=== PATIENT | male | born 1955 | race Caucasian/White ===

== ENCOUNTER 2018-03-03 11:34 | Inpatient (IN) | payer MEDICAID ==
[2018-03-03] MEDS ORDERED: Acetaminophen 325 MG Tab PO PRN (11:59)
[2018-03-03] MEDS ORDERED: Lactated Ringers 1,000 ML IV SCH (12:00)
[2018-03-03] MEDS ORDERED: LORazepam 1 MG Tab PO PRN (12:53)
[2018-03-03 12:57] LABS: CHLORIDE,CL 86 mmol/L (98-107)
--- NOTE | 2018-03-03 13:00 | PCM.HP ---
H&P History of Present Illness - General Date of Service: 03/03/18 Admit Problem/Dx: Admission Diagnosis/Problem Admission Diagnosis/Problem Aspiration pneumonia Source of Information: Other ([facility] staff) History Limitations: Reports: Language Barrier (patient is nonverbal) - History of Present Illness Initial Comments - Free Text/Narative: Mr. Chew is a 62 yo non-verbal male currently on treatment for aspiration pneumonia who presented to clinic for evaluation of ongoing fever with Tmax of 104 this am. He had been seen earlier in the week and diagnosed with aspiration pneumonia. He was started on augmentin 2 nights ago but has continued to spike high fevers. His cough also seems deeper per [facility] staff and he has had increased nasal congestion. He has not had any difficulty with breathing. His appetite is poor. He has a history of abdominal distension treated with temporary clear liquid diet. Given increased distension starting yesterday, he has been on a clear liquid diet. He is voiding ok. He is not passing gas but did have a large bowel movement this morning. He continues to be walking unsteadily and to be more sleepy than usual. He has not had any seizures. - Related Data Allergies/Adverse Reactions: Allergies Allergy/AdvReac Type Severity Reaction Status Date / Time No Known Allergies Allergy Verified 02/15/14 00:09 Home Medications: Home Meds Ammonium Lactate [Amlactin 12% Lotion] 1 applic TOP BID 02/15/14 [History] Betamethasone/Propylene Glyc [Betamethasone DP Aug 0.05%] 1 applic TOP BID PRN 02/15/14 [History] Divalproex Sodium [Depakote] 500 mg PO TID 02/15/14 [History] Furosemide [Lasix] 20 mg PO DAILY 02/15/14 [History] Loratadine [Claritin] 10 mg PO BEDTIME 02/15/14 [History] Multivitamin [Tab A Ian] 1 each PO DAILY 02/15/14 [History] QUEtiapine [SEROquel] 100 mg PO TID 02/15/14 [History] QUEtiapine [SEROquel] 400 mg PO BEDTIME 02/15/14 [History] Simethicone [Gas-X Ultra Strength] 125 mg PO QID 02/15/14 [History] Amoxicillin/Clavulanate K [Augmentin 875-125 MG] 1 tab PO BID 03/03/18 [History] Docusate Sodium [DOK] 200 mg PO BEDTIME 03/03/18 [History] LORazepam [Ativan] 1 mg SL ASDIRECTED PRN 03/03/18 [History] clonazePAM [Clonazepam] 0.5 mg PO BEDTIME 03/03/18 [History] Past Medical History HEENT History: Reports: Allergic Rhinitis Cardiovascular History: Reports: Heart Failure, High Cholesterol Respiratory History: Reports: None Gastrointestinal History: Reports: Chronic Constipation Genitourinary History: Reports: None Musculoskeletal History: Reports: None Neurological History: Reports: Seizure Psychiatric History: Reports: Autism, Depression Endocrine/Metabolic History: Reports: None Hematologic History: Reports: None Immunologic History: Reports: None Oncologic (Cancer) History: Reports: None Dermatologic History: Reports: Eczema - Infectious Disease History Infectious Disease History: Reports: None Social & Family History - Family History Neurological: Reports: CVA Endocrine/Metabolic: Reports: Diabetes, Type I - Tobacco Use Smoking Status *Q: Never Smoker - Alcohol Use Alcohol Use History: No Days Per Week of Alcohol Use: 0 Alcohol Use in Last Twelve Months: No - Recreational Drug Use Recreational Drug Use: No - Living Situation & Occupation Living situation: Reports: Single, Extended Care Facility Occupation: Disabled H&P Review of Systems - Review of Systems: Review Of Systems: Unable To Obtain (patient is nonverbal - staff offer no other complaints than as documented in HPI) Exam - Exam Exam: See Below - Exam General: Alert, Cooperative HEENT: Conjunctiva Clear, Mucosa Moist & [place] Neck: Supple, Trachea Midline. No: Lymphadenopathy, Thyromegaly Lungs: Normal Respiratory Effort, Crackles (right mid-lung field; lungs otherwise CTAB) Cardiovascular: Regular Rate, Regular Rhythm, Normal S1, Normal S2 GI/Abdominal Exam: Normal Bowel Sounds, Soft, Non-Tender, No Organomegaly, No Distention, No Mass Extremities: Normal Inspection, Non-Tender, No Pedal Edema Peripheral Pulses: 2+: Radial (L), Radial (R) Skin: Warm, Dry, Intact - Patient Data Lab Results Last 24 hrs: Laboratory Results - last 24 hr 03/03/18 Range/Units 12:05 WBC 8.0 (4.0-10.0) x10^3/uL RBC 3.68 L (4.5-6.0) x10^6/uL Hgb 12.0 L D (14.0-18.0) g/dL Hct 34.2 L (40.0-52.0) % MCV 92.9 (78.0-93.0) fL MCH 32.6 H (26.0-32.0) pg MCHC 35.1 (32.0-36.0) g/dL RDW Coeff of Sera 13.2 (10.0-15.0) % Plt Count 102 L (130-400) x10^3/uL Neut % (Auto) 62.6 (50.0-80.0) % Lymph % (Auto) 9.1 L (25.0-50.0) % [place] % (Auto) 28.2 H (2.0-11.0) % Eos % (Auto) 0.0 (0.0-4.0) % Baso % (Auto) 0.1 L (0.2-1.2) % Result Diagrams: 03/03/18 12:05 03/03/18 12:05 *Q Meaningful Use (ADM) - VTE *Q VTE Anticoagulation Contraindications: Med/TX Not Indicated/Need - Problem List (1) Hyponatremia SNOMED Code(s): 90311175 ICD Code: E87.1 - HYPO-OSMOLALITY AND HYPONATREMIA Status: Acute Current Visit: Yes Problem Details: - Had presumed his fatigue and difficulty walking was secondary to infection but now more likely related to the hyponatremia. - Has chronic hyponatremia, likely medication related. Acute on chronic likely secondary to poor PO intake this week. - He has not had any seizures related to this, which is good. - Will replete slowly with goal of maximum change in sodium to be 8-12 mmol/L in 24 hours. - Start with NaCl 0.9% at 125 cc/hr. - Recheck sodium this afternoon at 4 pm and adjust rate depending on those results. (2) Aspiration pneumonia SNOMED Code(s): 186722599 ICD Code: J69.0 - PNEUMONITIS DUE TO INHALATION OF FOOD AND VOMIT Status: Acute Current Visit: Yes Problem Details: - Ongoing fevers raise concern for failure of antibiotics. However, his labs actually are looking better than earlier this week. - Therefore, likely just needs more time to get the antibiotics in his system. - Given improvement in labs, would just continue the augmentin for now. - If he has another fever more than 48 hours after starting the antibiotics ( i.e. after 8 pm tonight), then would broaden to zosyn. - Consolidation is mass-like so radiology is recommending a CT with contrast. Although this is reasonable, it is also not urgent and can be done in the outpatient setting. If he does have ongoing fevers, then it can be reconsidered for the inpatient setting. Qualifiers: Aspiration pneumonia type: due to regurgitated food Laterality: right Lung location: middle lobe of lung Qualified Code(s): J69.0 - Pneumonitis due to inhalation of food and vomit (3) Thrombocytopenia SNOMED Code(s): 797015527 ICD Code: D69.6 - THROMBOCYTOPENIA, UNSPECIFIED Status: Acute Current Visit: Yes Problem Details: - Platelets have been low this week, likely related to acute illness. Consider depakote but this has never been an issue for him before. - Will monitor daily. (4) CHF (congestive heart failure) SNOMED Code(s): 33730923 ICD Code: I50.9 - HEART FAILURE, UNSPECIFIED Status: Chronic Current Visit: Yes Problem Details: - No evidence of CHF exacerbation. - Concern for possible fluid overload with correction of his hyponatremia. Therefore, even though the lasix will make him lose sodium, he likely needs to continue this to avoid any issues with CHF. - If difficulty correcting the sodium with fluids, will plan to hold lasix. Qualifiers: Heart failure type: diastolic Heart failure chronicity: chronic Qualified Code(s): I50.32 - Chronic diastolic (congestive) heart failure (5) Allergic rhinitis SNOMED Code(s): 97156999 ICD Code: J30.9 - ALLERGIC RHINITIS, UNSPECIFIED Status: Chronic Current Visit: Yes Problem Details: - Continue claritin. Qualifiers: Allergic rhinitis trigger: pollen Allergic rhinitis seasonality: seasonal Qualified Code(s): J30.1 - Allergic rhinitis due to pollen (6) Autism SNOMED Code(s): 057351623 ICD Code: F84.0 - AUTISTIC DISORDER Status: Chronic Current Visit: Yes Problem Details: - Patient behaviors have been outlined by [facility] staff. - Discussed with family that he requires 24/7 staffing and we are not able to accommodate that with our staff here in [place]. This is because he is a fall risk if he tries to get up on his own. - They voice understanding and will plan to have a family member staying with him 20/06 over the weekend. - Continue quetiapine. 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 - Consider PPI for reflux but this will more likely increase the risk of pneumonia than lower it so that would not be recommended at this time. (8) Epilepsy SNOMED Code(s): 63368693 ICD Code: G40.909 - EPILEPSY, UNSP, NOT INTRACTABLE, WITHOUT STATUS EPILEPTICUS Status: Chronic Current Visit: Yes Problem Details: - No seizure since December. - Continue home medications. - He will need to be on seizure precautions, especially as his sodium is corrected. This will be done very slowly to mitigate the risk of seizures. Qualifiers: Epilepsy type: unspecified Intractability: not intractable Status epilepticus: without status epilepticus Qualified Code(s): G40.909 - Epilepsy , unspecified, not intractable, without status epilepticus (9) Constipation SNOMED Code(s): 20066813 ICD Code: K59.00 - CONSTIPATION, UNSPECIFIED Status: Chronic Current Visit: Yes Problem Details: - Currently well controlled. - He does have abdominal distension today so will have him be NPO apart from sips to take his pills. - If distension improves tomorrow, can restart with clear liquid diet and then advance as tolerated. Qualifiers: Constipation type: unspecified constipation type Qualified Code(s): K59.00 - Constipation, unspecified Problem List Initiated/Reviewed/Updated: Yes Orders Last 24hrs: Active Orders 24 hr Category Date Time Status Patient Status [ADT] Routine ADT 03/03/18 11:38 Active Notify Provider Vital Signs [RC] ASDIRECTED Care 03/03/18 11:59 Active Oxygen Therapy [RC] .PRN Care 03/03/18 11:59 Active Up With Assistance [RC] ASDIRECTED Care 03/03/18 11:59 Active VTE/DVT Education [RC] .PRN Care 03/03/18 11:59 Active Vital Signs [RC] 06,10,14,18,22,02 Care 03/03/18 11:59 Active Nothing per Oral Now Diet [DIET] Diet 03/03/18 Lunch Active Chest 2V [CR] Routine Exams 03/03/18 11:52 Taken BASIC METABOLIC PANEL,BMP [CHEM] Stat Lab 03/03/18 12:05 Received C-REACTIVE PROTEIN [CHEM] Routine Lab 03/03/18 12:05 Received CULTURE BLOOD [BC] Stat Lab 03/03/18 12:05 Received CULTURE BLOOD [BC] Stat Lab 03/03/18 12:07 Received CULTURE MRSA SURVEY [RM] Routine Lab 03/03/18 12:10 Ordered LACTIC ACID [CHEM] Stat Lab 03/03/18 12:05 Received Acetaminophen [Tylenol] Med 03/03/18 11:59 Active 650 mg PO Q4H PRN Ammonium Lactate [Amlactin 12% Lotion] Med 03/03/18 20:00 Ordered 1 applic TOP BID Divalproex Sodium Med 03/03/18 13:00 Ordered 500 mg PO TID Docusate Sodium [DOK] Med 03/03/18 20:00 Ordered 200 mg PO BEDTIME Furosemide [Lasix] Med 03/04/18 08:00 Ordered 20 mg PO DAILY LORazepam [Ativan] Med 03/03/18 12:53 Ordered 1 mg PO ASDIRECTED PRN Lactated Ringers [Ringers, Lactated] 1,000 ml Med 03/03/18 12:00 Active IV ASDIRECTED Loratadine [Claritin] Med 03/03/18 20:00 Ordered 10 mg PO BEDTIME QUEtiapine [SEROquel] Med 03/03/18 20:00 Ordered 100 mg PO TID QUEtiapine [SEROquel] Med 03/03/18 20:00 Ordered 400 mg PO BEDTIME Simethicone [Gas-X Ultra Strength] Med 03/03/18 16:00 Ordered 125 mg PO QID clonazePAM [Clonazepam] Med 03/03/18 20:00 Ordered 0.5 mg PO BEDTIME Anticoagulation Contraindications VTE [AST] Per Unit Oth 03/03/18 11:59 Ordered Routine Blood Culture x2 Reflex Set [OM.PC] Stat Oth 03/03/18 11:50 Ordered Resuscitation Status Routine Resus Stat 03/03/18 11:59 Ordered Medication Orders Acetaminophen (Tylenol) 650 mg PO Q4H PRN PRN Reason: Pain (Mild 1-3)/fever Furosemide (Lasix) 20 mg PO DAILY ZIYAD Lactated Ringer's (Ringers, Lactated) 1,000 mls @ 125 mls/hr IV ASDIRECTED ZIYAD Last Admin: 03/03/18 12:41 Dose: 125 mls/hr Loratadine (Claritin) 10 mg PO BEDTIME ZIYAD Lorazepam (Ativan) 1 mg PO ASDIRECTED PRN PRN Reason: Seizures Non-Formulary Medication (Ammonium Lactate [Amlactin 12% Lotion]) 1 applic TOP BID ZIYAD Non-Formulary Medication (Clonazepam [Clonazepam]) 0.5 mg PO BEDTIME ZIYAD Non-Formulary Medication (Divalproex Sodium) 500 mg PO TID ZIYAD Non-Formulary Medication (Docusate Sodium [Dok]) 200 mg PO BEDTIME ZIYAD Non-Formulary Medication (Quetiapine [Seroquel]) 400 mg PO BEDTIME ZIYAD Non-Formulary Medication (Simethicone [Gas-X Ultra Strength]) 125 mg PO QID ZIYAD Quetiapine Fumarate (Seroquel) 100 mg PO TID ZIYAD Assessment/Plan Comment:: 62 yo male admitted with hyponatremia secondary to presumed aspiration pneumonia. Labs improved from earlier in the week apart from the sodium. Sodium correction with 0.9% NaCl. Otherwise, continue augmentin with plan to switch to zosyn if he has any further fevers. At that point, CT with contrast is also recommended. Home medications continued. See details under problems above. Admitted to inpatient due to level of monitoring and intervention as well as assumption that he will be admitted for at least 2 nights to correct the hyponatremia. Hold off on VTE prophylaxis at this time in the setting of thrombocytopenia and fall risk. If he does ok behaviorally and platelets remain stable, then could consider lovenox. Code status is full - discussed with POA on admission.
[2018-03-03 13:01] LABS: SODIUM,NA 120 mmol/L (136-145)
[2018-03-03] MEDS: Sodium Chloride 0.9% 1,000 ML IV SCH ×2 (13:48→21:58)
[2018-03-03] MEDS: QUEtiapine 100 MG Tab PO SCH ×3 (13:52→19:53)
[2018-03-03] MEDS: Simethicone 80 MG Tab.Chew PO SCH ×3 (13:52→19:52)
[2018-03-03] MEDS: Divalproex Sodium Delayed-Release 250 MG Tab.CR PO SCH ×2 (13:52→19:51)
[2018-03-03] MEDS: Amoxicillin/Clavulanate K 875-125 MG Tab PO SCH (19:51)
[2018-03-03] MEDS: Docusate Sodium 100 MG Cap PO SCH (19:52)
[2018-03-03] MEDS: ClonazePAM 0.5 MG Tab PO SCH (19:52)
[2018-03-03] MEDS: Loratadine 10 MG Tab PO SCH (19:53)
[2018-03-03] MEDS ORDERED: AMMONIUM LACTATE TOP SCH (20:00)
[2018-03-04] MEDS: Divalproex Sodium Delayed-Release 250 MG Tab.CR PO SCH ×3 (08:45→19:42)
[2018-03-04] MEDS: Amoxicillin/Clavulanate K 875-125 MG Tab PO SCH ×2 (08:45→19:43)
[2018-03-04] MEDS: Simethicone 80 MG Tab.Chew PO SCH ×4 (08:45→19:44)
[2018-03-04] MEDS: Furosemide 20 MG Tab PO SCH (08:45)
[2018-03-04] MEDS: QUEtiapine 100 MG Tab PO SCH ×4 (08:46→19:43)
[2018-03-04 09:14] LABS: CHLORIDE,CL 97 mmol/L (98-107); SODIUM,NA 130 mmol/L (136-145)
[2018-03-04] MEDS: Sodium Chloride 0.9% 1,000 ML IV SCH (09:36)
[2018-03-04] MEDS ORDERED: Sodium Chloride 0.9% 1,000 ML IV SCH (09:51)
--- NOTE | 2018-03-04 12:22 | PN ---
Progress Note for EBENEZER CAZARES Date: 03/04/2018 Room #: VM.218 SUBJECTIVE: The patient is more alert. He seems to be hungry, caregiver is with him today. The patient has not been up moving much at all. The patient is non-vocal. OBJECTIVE: Vital Signs: His temperature last night was 38.6, now is down to 37.3; his pulse is 91; blood pressure is 144/67; respiratory rate 18; saturations are 96% on room air, that had been down to 90%. General: He is alert. Eyes are moving around. Heart: Regular rate and rhythm. Lungs: Have inspiratory crackles on right. Abdomen: Slightly distended. Bowel sounds are present. It is soft. LABORATORY DATA: His white blood cell count is down to 5.9, hemoglobin is 12.2, and platelets 118. Sodium is improved to 130, potassium 4.1, creatinine 0.7, GFR greater than 60, calcium 8.7. CRP on admission was 27.6. IMPRESSION: 1. Right upper lobe pneumonia. 2. Hyponatremia. 3. Epilepsy. 4. Congestive heart failure. 5. Allergic rhinitis. 6. Autism. PLAN: We will have patient's IV fluids turned down to 75 mL per hour. We will allow him to have a soft diet. We will continue his oral antibiotics. We will repeat lab work tomorrow and we will allow his activity, to start ambulating around. GM03/04/2018 09:59:32 MODL: 03/04/2018 10:30:05 /[id number]
[2018-03-04] MEDS: Docusate Sodium 100 MG Cap PO SCH (19:43)
[2018-03-04] MEDS: ClonazePAM 0.5 MG Tab PO SCH (19:43)
[2018-03-04] MEDS: Loratadine 10 MG Tab PO SCH (19:44)
[2018-03-05 08:44] LABS: CHLORIDE,CL 103 mmol/L (98-107); SODIUM,NA 135 mmol/L (136-145)
[2018-03-05] MEDS: QUEtiapine 100 MG Tab PO SCH ×2 (08:58→11:58)
[2018-03-05] MEDS: Divalproex Sodium Delayed-Release 250 MG Tab.CR PO SCH ×2 (08:58→11:58)
[2018-03-05] MEDS: Simethicone 80 MG Tab.Chew PO SCH ×2 (08:58→11:59)
[2018-03-05] MEDS: Furosemide 20 MG Tab PO SCH (08:58)
[2018-03-05] MEDS: Amoxicillin/Clavulanate K 875-125 MG Tab PO SCH (08:59)
--- NOTE | 2018-03-05 12:01 | PN ---
Progress Note for EBENEZER CAZARES Date: 03/05/2018 Room #: VM.218 SUBJECTIVE: He is feeling much better. He is back to his baseline. He is eager for discharge home. The family member who is present would like to have him discharged today as tomorrow would be more difficult for him to assist with return to his custodial. The patient's custodial was not certain if they can handle return of patient to a custodial with weekend staffing and so "they are checking into it." OBJECTIVE: Vital Signs: His temperature is 36.6, pulse 74, blood pressure is 145/77, respiratory rate 20, sats are 97% on room air. General: The patient is sitting, alert in his chair at his baseline. He is not coughing, not short of breath. Per nursing staff, he has gotten anxious. Heart: Regular rate and rhythm. Lungs: Clear to auscultation. Abdomen: Bowel sounds present. Abdomen is soft. LABORATORY DATA: Work card shows his white blood cell count 4.7, hemoglobin 12.0, platelets are 167 with 35 neutrophils, 6 bands, 20 monocyte. Sodium is 135, potassium 4.4, creatinine 0.7, GFR greater than 60. Lactic acid 0.6. CRP is improved to 19.9. IMPRESSION: 1. Aspiration pneumonia. 2. Hyponatremia. 3. Seizure disorder. PLAN: We will hope to discharge the patient later today depending on the ability of custodial staff to assume patient back to into their status. If he is not able to go home today, then we will need to discharge tomorrow and he can follow up with Dr. Elvira Beard in a week's time. He is back to his usual oral medications and opted not to do a repeat chest x-ray today since this status was so much better and would not change any medication on patient. GM03/05/2018 11:13:19 MODL: 03/05/2018 11:50:27 /[id number] ISIDORO
--- NOTE | 2018-03-05 15:07 | DISCH ---
The patient was admitted on 03/03/2018, discharged on 03/05/2018 with diagnoses of; 1. Right upper lobe aspiration pneumonia. 2. Hyponatremia. 3. Epilepsy. 4. Congestive heart failure. 5. Allergic rhinitis. 6. Autism. 7. Thrombocytopenia. 8. Rumination disorder. 9. Constipation. SUMMARY OF ADMIT HISTORY AND PHYSICAL: The patient is a 62-year-old intermediate resident who is currently undergoing treatment for aspiration pneumonia as outpatient. He came to the clinic with ongoing fevers with T-max of 104. Cough was deeper. He is having increased nasal congestion, was not having difficulty breathing. Appetite was poor. History of abdominal distention treated with temporary clear liquid diet. He has been voiding okay. Bowels have been working. His laboratory data on admission showed his white blood cell count 8.0, hemoglobin 12.0, platelets 102, 67 segs, 9 lymphocytes, 28 monocytes. His sodium was 120, potassium 4.3, creatinine 1.0, BUN 10, chloride 86, bicarb 27. SUMMARY OF HOSPITAL COURSE: The patient was admitted to acute care. He was placed on IV sodium chloride to help reverse hyponatremia. He was kept on oral Augmentin as his temperature now spiked above 101. The patient's lab by next morning had improved with sodium up to 123 later that same day and then 130 the next morning, creatinine had gone down to 0.9. GFR was greater than 60. His white blood cell count has improved to 5.9, hemoglobin is stable at 12.2, platelets are up to 118. By 03/05/2018, he was able to eat and so his diet was returned back to regular and he respiratory card was doing much better. By 03/05/2018, it was felt he was at baseline and he was very eager for discharge home. His family member states that he felt that he would do much better in his intermediate environment and being at the hospital. The patient was just on oral medications by that time. His white blood cell count was 4.7, hemoglobin was 12.0. Manual diff shows 35% neutrophils, 6 bands, 20% monocytes. Sodium was up to 135, potassium 4.4, creatinine 0.7, carbon dioxide 25, chloride 103, lactic acid 0.6. CRP was 19.9, improved from 27.6 on admission. The patient was felt safe to be discharged home. MEDICATIONS AT DISCHARGE: Multivitamin 1 pill daily, betamethasone 0.05% lotion b.i.d. p.r.n., AmLactin 12% lotion apply topically b.i.d., Seroquel 400 mg 1 pill at bedtime, Seroquel 100 mg 1 pill 3 times a day, Claritin 10 mg 1 pill at bedtime, simethicone 180 mg, he takes 125 mg 4 times a day. Lasix 20 mg 1 pill daily. Depakote 500 mg 1 pill 3 times a day. Docusate 100 mg 2 pills at bedtime. Clonazepam 0.5 mg 1 pill at bedtime. Ativan 1 mg sublingual p.r.n. seizures. His Augmentin will be 875 mg 1 pill twice a day for 7 more days of medicines. The patient should follow up to be seen in a week's time in the clinic by his primary director of critical care or Dr. Beard and diet should be his usual with ample amounts of salt available. GM03/05/2018 11:48:23 MODL: 03/05/2018 14:57:44 /[id number]
== END 2018-03-05 12:30 | disposition home or self-care (01) | DRG 640 ==
LOC: VM.MS 11:38
PROVIDERS: ADMIT Family Medicine; ATTEND Family Medicine
DX: E87.1 Hypo-osmolality and hyponatremia (principal); J69.0 Pneumonitis due to inhalation of food and vomit; F84.0 Autistic disorder; I50.32 Chronic diastolic (congestive) heart failure; G40.909 Epilepsy, unspecified, not intractable, without status epilepticus; F98.21 Rumination disorder of infancy and childhood; R14.0 Abdominal distension (gaseous); E78.00 Pure hypercholesterolemia, unspecified; K59.09 Other constipation; F32.9 Major depressive disorder, single episode, unspecified; T50.905A Adverse effect of unspecified drugs, medicaments and biological substances, initial encounter; D69.59 Other secondary thrombocytopenia; J30.1 Allergic rhinitis due to pollen; K21.9 Gastro-esophageal reflux disease without esophagitis; Z79.899 Other long term (current) drug therapy
CPT/HCPCS: 36415; 71046; 80048; 83605; 84295; 85025; 86140; 87040; A9270-GY; J7030; J7120

== ENCOUNTER 2021-04-28 15:53 | Emergency (ER) | payer MEDICAID ==
--- NOTE | 2021-04-28 16:50 | CT ---
[id number] CT/CT Head WO IV EXAM: CT Head WO IV CLINICAL DATA: FALL, STRUCK HEAD, UNEQUAL PUPILS, FELL FROM LOW HEIGHT COMPARISON STUDY: None FINDINGS: No intracranial hemorrhage, extra-axial fluid collection, mass, or acute ischemia. No hydrocephalus. Chronic small vessel disease in the brain. Calvarium intact. Paranasal sinuses and mastoid air cells are clear. IMPRESSION: No acute intracranial findings. Priyank Peraza MD 04/28/21 [id number] Thank you for allowing us to participate in the care of your patient.
--- NOTE | 2021-04-30 03:10 | EDM.PDOC ---
ED HPI GENERAL MEDICAL PROBLEM - General Chief Complaint: Head Injury Stated Complaint: FALL / HIT HEAD Time Seen by Provider: 04/28/21 15:54 Source of Information: Reports: Old Records, Provider, Other ([facility]) History Limitations: Reports: Other (History of mental disability.) - History of Present Illness INITIAL COMMENTS - FREE TEXT/NARRATIVE: Pt. presents to ER for evaluation for possible head injury. Pt. was sent to ER from clinic. Pt. struck head on concrete when he fell from kneeling, striking the R side of his head. No injury elsewhere. Pt. was noted to have unequal pupils and was sent to ER. Pt. has a history of many problems with R eye and has had numerous surgeries to the eye. Pt. denies any upset stomach, nausea or vomiting. No chest pain or shortness of breath. Denies any acute vision loss or change. No headache. Location: Reports: Head - Related Data Allergies Allergy/AdvReac Type Severity Reaction Status Date / Time No Known Allergies Allergy Verified 04/28/21 17:11 Home Meds: Home Meds Ammonium Lactate [Amlactin 12% Lotion] 1 applic TOP BID 02/15/14 [History] Betamethasone/Propylene Glyc [Betamethasone DP Aug 0.05%] 1 applic TOP BID PRN 02/15/14 [History] Divalproex Sodium [Depakote] 500 mg PO TID 02/15/14 [History] Furosemide [Lasix] 20 mg PO DAILY 02/15/14 [History] Loratadine [Claritin] 10 mg PO BEDTIME 02/15/14 [History] Multivitamin [Tab A Ian] 1 each PO DAILY 02/15/14 [History] QUEtiapine [SEROquel] 100 mg PO TID 02/15/14 [History] QUEtiapine [SEROquel] 400 mg PO BEDTIME 02/15/14 [History] Simethicone [Gas-X Ultra Strength] 125 mg PO QID 02/15/14 [History] Docusate Sodium [DOK] 200 mg PO BEDTIME 03/03/18 [History] LORazepam [Ativan] 1 mg SL ASDIRECTED PRN 03/03/18 [History] clonazePAM [Clonazepam] 0.5 mg PO BEDTIME 03/03/18 [History] Amoxicillin/Clavulanate K [Augmentin 875-125 MG] 1 tab PO BID 7 Days #14 tablet 03/05/18 [Rx] Past Medical History HEENT History: Reports: Allergic Rhinitis Other HEENT History: deaf Cardiovascular History: Reports: Heart Failure, High Cholesterol Respiratory History: Reports: None Gastrointestinal History: Reports: Chronic Constipation Other Gastrointestinal History: flatulence Genitourinary History: Reports: None Musculoskeletal History: Reports: None Neurological History: Reports: Seizure Other Neuro History: epilepsy Psychiatric History: Reports: Autism, Depression Endocrine/Metabolic History: Reports: None Hematologic History: Reports: None Immunologic History: Reports: None Oncologic (Cancer) History: Reports: None Dermatologic History: Reports: Eczema - Infectious Disease History Infectious Disease History: Reports: None - Past Surgical History HEENT Surgical History: Reports: Cataract Surgery Social & Family History - Family History Family Medical History: Unobtainable Neurological: Reports: CVA Endocrine/Metabolic: Reports: Diabetes, Type I - Tobacco Use Tobacco Use Status *Q: Current Status Unknown - Caffeine Use Caffeine Use: Reports: None - Living Situation & Occupation Living situation: Reports: Single, Extended Care Facility Occupation: Disabled ED ROS GENERAL - Review of Systems Review Of Systems: See Below Constitutional: Reports: No Symptoms HEENT: Reports: Other (unequal pupils R>L) Respiratory: Reports: No Symptoms Cardiovascular: Reports: No Symptoms Endocrine: Reports: No Symptoms GI/Abdominal: Reports: No Symptoms : Reports: No Symptoms Musculoskeletal: Reports: No Symptoms Skin: Reports: No Symptoms Neurological: Reports: No Symptoms Psychiatric: Reports: No Symptoms ED EXAM, GENERAL - Physical Exam Exam: See Below Exam Limited By: No Limitations General Appearance: Alert, WD/WN, No Apparent Distress Eye Exam: Right Eye: PERRL (R pupil larger than L. Both react briskly.), Bilateral Eye: EOMI, Normal Fundi Course - Vital Signs Last Recorded V/S: Last Vital Signs Temp 36.2 C 04/28/21 16:00 Pulse 63 04/28/21 16:00 Resp 18 04/28/21 16:00 BP 140/71 04/28/21 16:00 Pulse Ox 99 04/28/21 16:00 - Radiology Interpretation Free Text/Narrative:: CT brain negative for acute pathology. Departure - Departure Time of Disposition: 17:00 Disposition: Home, Self-Care 01 Clinical Impression: Unequal pupils - Discharge Information Instructions: Head Injury, Adult Referrals: Elvira Beard MD [Primary Care Provider] - Forms: ED Department Discharge Additional Instructions: No pathology was noted on the CT scan. Given his numerous problems with the R eye, the pupil asymmetry is likely chronic. I have included a handout on head injuries. Return to ER if he develops any vomiting, decreased level of consciousness, or other worrisome signs/symptoms. Sepsis Event Note (ED) - Evaluation Sepsis Screening Result: No Definite Risk - Assessment/Plan Plan: No pathology was noted on the CT scan. Given his numerous problems with the R eye, the pupil asymmetry is likely chronic. I have included a handout on head injuries. Return to ER if he develops any vomiting, decreased level of consciousness, or other worrisome signs/symptoms.
== END 2021-04-28 17:00 | disposition home or self-care (01) ==
LOC: VM.ED 15:53
DX: A52.19 Other symptomatic neurosyphilis (principal)
CPT/HCPCS: 70450; 99283-25; 99284

== ENCOUNTER 2023-02-09 18:30 | Emergency (ER) | payer MEDICARE, MEDICAID ==
[2023-02-09 19:49] LABS: CORONAVIRUS COVID-19 NAA POSITIVE (NEGATIVE)
== END 2023-02-09 20:00 | disposition home or self-care (01) ==
LOC: VM.ED 18:30
DX: U07.1 COVID-19 (principal); I50.9 Heart failure, unspecified; E78.00 Pure hypercholesterolemia, unspecified; Z79.899 Other long term (current) drug therapy
CPT/HCPCS: 0240U; 99283

== ENCOUNTER 2023-05-25 11:48 | Emergency (ER) | payer MEDICARE, MEDICAID ==
[2023-05-25 13:26] LABS: BASOPHILS PERCENT AUTO 0.4 % (0.2-1.2); EOSINOPHILS ABSOLUTE AUTO 0.2 x10^3/uL (0.0-0.5); EOSINOPHILS PERCENT AUTO 2.4 % (0.0-4.0); HEMATOCRIT 37.8 % (40.0-52.0); HEMOGLOBIN 13.3 g/dL (14.0-18.0); IMMATURE GRAN ABSOLUTE AUTO 0.01 x10^3/uL (0.00-0.07); MEAN CORPUSCULAR HEMOGLOBIN 33.4 pg (26.0-32.0); MEAN CORPUSCULAR HGB CONC 35.2 g/dL (32.0-36.0); MONOCYTES ABSOLUTE AUTO 1.2 x10^3/uL (0.0-0.8); MONOCYTES PERCENT AUTO 18.4 % (2.0-11.0); NEUTROPHILS ABSOLUTE AUTO 3.3 x10^3/uL (1.8-7.7); NEUTROPHILS PERCENT AUTO 49.7 % (50.0-80.0); PLATELET COUNT,PLT 145 x10^3/uL (130-400); RED BLOOD CELL COUNT 3.98 x10^6/uL (4.5-6.0); WHITE BLOOD CELL COUNT,WBC 6.7 x10^3/uL (4.0-10.0)
[2023-05-25 13:45] LABS: A/G RATIO 0.78; ALANINE AMINOTRANSFERASE,ALT 18 U/L (16-63); ALBUMIN 3.1 g/dL (3.4-5.0); ALKALINE PHOSPHATASE 62 U/L (46-116); ASPARTATE AMNIOTRANSFERASE,AST 25 U/L (15-37); BILIRUBIN TOTAL 0.2 mg/dL (0.2-1.0); BLOOD UREA NITROGEN,BUN 17 mg/dL (7-18); C-REACTIVE PROTEIN 0.14 mg/dL (<=0.30); CALCIUM 8.8 mg/dL (8.5-10.1); CARBON DIOXIDE,CO2 30 mmol/L (21-32); CHLORIDE,CL 96 mmol/L (98-107); CREATININE 0.9 mg/dL (0.70-1.30); GLUCOSE RANDOM 94 mg/dL (70-99); MAGNESIUM 1.7 mg/dL (1.8-2.4); POTASSIUM,K 5.2 mmol/L (3.5-5.1); PROTEIN TOTAL,TP 7.1 g/dL (6.4-8.2); SODIUM,NA 130 mmol/L (136-145)
[2023-05-25 13:46] LABS: ANION GAP 9.2 mmol/L (5-15); ESTIMATED GFR 94 mL/min (>=60)
== END 2023-05-25 14:30 | disposition home or self-care (01) ==
LOC: VM.ED 11:48
DX: R53.1 Weakness (principal); I50.9 Heart failure, unspecified; E78.00 Pure hypercholesterolemia, unspecified; Z86.16 Personal history of COVID-19; Z79.899 Other long term (current) drug therapy
CPT/HCPCS: 36415; 70450; 71046; 80053; 83735; 84484; 85025; 86140; 93005; 93010; 99284; 99285

== ENCOUNTER 2024-05-31 01:17 | Emergency (ER) | payer MEDICARE, MEDICAID ==
[2024-05-31 01:51] LABS: BASOPHILS PERCENT AUTO 0.5 % (0.2-1.2); EOSINOPHILS ABSOLUTE AUTO 0.2 x10^3/uL (0.0-0.5); HEMATOCRIT 38.1 % (40.0-52.0); HEMOGLOBIN 13.2 g/dL (14.0-18.0); IMMATURE GRAN ABSOLUTE AUTO 0.03 x10^3/uL (0.00-0.07); LYMPHOCYTES ABSOLUTE AUTO 2.5 x10^3/uL (1.0-4.8); LYMPHOCYTES PERCENT AUTO 39.5 % (25.0-50.0); MEAN CORPUSCULAR HEMOGLOBIN 33.8 pg (26.0-32.0); MEAN CORPUSCULAR HGB CONC 34.6 g/dL (32.0-36.0); MEAN CORPUSCULAR VOLUME 97.7 fL (78.0-93.0); MONOCYTES ABSOLUTE AUTO 1.1 x10^3/uL (0.0-0.8); MONOCYTES PERCENT AUTO 16.5 % (2.0-11.0); NEUTROPHILS ABSOLUTE AUTO 2.5 x10^3/uL (1.8-7.7); PLATELET COUNT,PLT 114 x10^3/uL (130-400); WHITE BLOOD CELL COUNT,WBC 6.4 x10^3/uL (4.0-10.0)
[2024-05-31 02:07] LABS: A/G RATIO 0.74; ALANINE AMINOTRANSFERASE,ALT 20 U/L (16-63); ALBUMIN 2.9 g/dL (3.4-5.0); ALKALINE PHOSPHATASE 64 U/L (46-116); ANION GAP 13.5 mmol/L (5-15); ASPARTATE AMNIOTRANSFERASE,AST 26 U/L (15-37); BILIRUBIN TOTAL 0.3 mg/dL (0.2-1.0); BLOOD UREA NITROGEN,BUN 19 mg/dL (7-18); CARBON DIOXIDE,CO2 26 mmol/L (21-32); CHLORIDE,CL 97 mmol/L (98-107); ESTIMATED GFR 82 mL/min (>=60); GLUCOSE RANDOM 119 mg/dL (70-99); POTASSIUM,K 4.5 mmol/L (3.5-5.1); PROTEIN TOTAL,TP 6.8 g/dL (6.4-8.2); SODIUM,NA 132 mmol/L (136-145)
== END 2024-05-31 02:45 | disposition home or self-care (01) ==
LOC: VM.ED 01:17
DX: F84.0 Autistic disorder (principal); H57.02 Anisocoria; I50.9 Heart failure, unspecified; E78.00 Pure hypercholesterolemia, unspecified; Z86.16 Personal history of COVID-19; Z79.899 Other long term (current) drug therapy; W19.XXXA Unspecified fall, initial encounter
CPT/HCPCS: 36415; 70450; 72125; 80053; 85025; 99283

== ENCOUNTER 2024-05-31 12:55 | Emergency (ER) | payer MEDICARE, MEDICAID | END 2024-05-31 14:12 | LOC: VM.ED 12:55 → SUPCPDRO 12:55 → VM.ED 14:12 | DX: S06.0X0A Concussion without loss of consciousness, initial encounter (principal); I50.9 Heart failure, unspecified; E78.00 Pure hypercholesterolemia, unspecified; Z86.16 Personal history of COVID-19; Z79.899 Other long term (current) drug therapy; W19.XXXA Unspecified fall, initial encounter | CPT/HCPCS: 70450; 99285 ==